=== PATIENT | female | born 1960 | race Caucasian/White ===

== ENCOUNTER 2016-12-16 21:31 | Emergency (ER) | payer SELFPAY ==
[~2016-12-16] VITALS: Ht 162.6 cm; Wt 69.1 kg
[2016-12-17 00:32] LABS: HEMATOCRIT 42.4 % (36.0-46.0); MCH 29.4 PG (29.0-34.0); MCHC 32.5 G/DL (30.0-36.0); MCV 90.2 FL (83-99); MEAN PLAT.VOLUME 11.2 uM^3 (9.5-12.4); PLATELET COUNT 207 K/uL (156-360); RBC DIS.WIDTH-CV 12.1 % (11.8-14.6); RBC DIS.WIDTH-SD 39.8 % (39-53); WHITE BLOOD COUNT 5.5 K/uL (4.1-10.2)
[2016-12-17 00:41] LABS: CHLORIDE 107 mEq/L (99-109); POTASSIUM 4.3 mEq/L (3.7-5.4); SODIUM 143 mEq/L (136-147)
[2016-12-17 00:43] LABS: GLUCOSE 97 mg/dL (70-99)
[2016-12-17 00:45] LABS: ANION GAP 8 MEQ/L (2-14); TOTAL BILIRUBIN 0.2 mg/dL (0.0-1.0)
[2016-12-17 00:47] LABS: ALKALINE PHOSPHATASE 64 IU/L (3-129); GFR ESTIMATE (CALCULATED) > 59 mL/min/
[2016-12-17 00:48] LABS: UREA NITROGEN (BUN) 18 mg/dL (9-23)
[2016-12-17] MEDS ORDERED: FIORICET 50-301 EACH PO (01:12)
[2016-12-17] MEDS ORDERED: FLEXERIL10 MG PO (01:12)
[2016-12-17 01:17] VITALS: BP 152/83
== END 2016-12-17 01:23 | disposition home or self-care (01) ==
LOC: EME 21:31 → EXP 21:31
PROVIDERS: Physician Assistant
DX: R51 Headache (principal); M54.2 Cervicalgia; Z73.3 Stress, not elsewhere classified; F17.200 Nicotine dependence, unspecified, uncomplicated
CPT/HCPCS: 70450; 80053; 85027; 99281; 99285; J1200; J1885; J2765; J7030